=== PATIENT | female | born 1980 ===

== ENCOUNTER → 2020-12-18 | Outpatient (CLI) | payer OTHER ==
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
== END ==
LOC: RAD 11:20
PROVIDERS: ATTEND Nurse Practitioner Family
DX: S09.90XA Unspecified injury of head, initial encounter (principal); R10.84 Generalized abdominal pain; N20.0 Calculus of kidney; V89.2XXA Person injured in unspecified motor-vehicle accident, traffic, initial encounter
CPT/HCPCS: 70450; 74176